=== PATIENT | female | born 1955 | race Caucasian/White ===

== ENCOUNTER 2023-09-16 10:39 | Outpatient (CLI) | payer MEDICARE, BC | END 2023-09-16 10:40 | disposition home or self-care (01) | LOC: BICMAMMO 10:39 | PROVIDERS: ATTEND Internal Medicine | DX: M81.0 Age-related osteoporosis without current pathological fracture (principal) | CPT/HCPCS: 77080 ==

== ENCOUNTER 2024-11-16 13:13 | Emergency (ER) | payer MEDICARE | END 2024-11-16 16:50 | disposition home or self-care (01) | LOC: ERS 13:13 | DX: S32.511A Fracture of superior rim of right pubis, initial encounter for closed fracture (principal); S32.19XA Other fracture of sacrum, initial encounter for closed fracture; E78.00 Pure hypercholesterolemia, unspecified; W08.XXXA Fall from other furniture, initial encounter; Y93.89 Activity, other specified; Z79.899 Other long term (current) drug therapy | CPT/HCPCS: 72100; 72170; 72192 ==